=== PATIENT | female | born 1945 | race Caucasian/White ===

== ENCOUNTER 2020-11-08 17:02 | Inpatient (IN) | payer OTHER ==
[~2020-11-08] VITALS: Ht 157.5 cm; Wt 69.4 kg
[2020-11-08] MEDS ORDERED: NIFEDIPINE20 MG (17:31)
[2020-11-08] MEDS ORDERED: IRBESARTAN-HCT1 EACH (17:31)
[2020-11-08] MEDS ORDERED: ZIAC 10/6.25 MG1 TAB (17:31)
[2020-11-09] MEDS ORDERED: SERTRALINE HCL25 MG (14:28)
[2020-11-12] MEDS ORDERED: Procardia Xl 30MG TA PO (18:10)
[2020-11-12] MEDS ORDERED: THIAMINE HCL100 MG PO (18:10)
[2020-11-12] MEDS ORDERED: QUETIAPINE FUMA25 MG PO (18:10)
[2020-11-12] MEDS ORDERED: MEGESTROL400 MG/11 PO (18:10)
[2020-11-12] MEDS ORDERED: TOPROL XL25 M1 PO (18:10)
[2020-11-12] MEDS ORDERED: FOLIC ACID1 MG PO (18:10)
[2020-11-12] MEDS ORDERED: MULTI-VITAMIN1 EACH PO (18:10)
== END 2020-11-12 22:10 | disposition home or self-care (01) | DRG 69 ==
LOC: ER 17:02 → MEDI 23:49 → MEDJ 11-12 07:32
PROVIDERS: ADMIT Internal Medicine; ATTEND Internal Medicine
PROC: B020ZZZ Computerized Tomography (CT Scan) of Brain (ICD-10-PCS; 2020-11-08)
PROC: B345ZZZ Ultrasonography of Bilateral Common Carotid Arteries (ICD-10-PCS; 2020-11-08)
PROC: BT43ZZZ Ultrasonography of Bilateral Kidneys (ICD-10-PCS; 2020-11-08)
PROC: B24BYZZ Ultrasonography of Heart with Aorta using Other Contrast (ICD-10-PCS; 2020-11-08)
PROC: 4A12X45 Monitoring of Cardiac Electrical Activity, Ambulatory, External Approach (ICD-10-PCS; principal; 2020-11-09)
PROC: BW38Y0Z Magnetic Resonance Imaging (MRI) of Head using Other Contrast, Unenhanced and Enhanced (ICD-10-PCS; 2020-11-09)
DX: G45.8 Other transient cerebral ischemic attacks and related syndromes (principal); G93.41 Metabolic encephalopathy; E87.1 Hypo-osmolality and hyponatremia; N17.9 Acute kidney failure, unspecified; F10.231 Alcohol dependence with withdrawal delirium; E86.0 Dehydration; E87.6 Hypokalemia; I10 Essential (primary) hypertension
CPT/HCPCS: 70544

== ENCOUNTER 2023-10-08 00:04 | Inpatient (IN) | payer OTHER ==
[~2023-10-08] VITALS: Ht 167.6 cm; Wt 70.8 kg
[~2023-10-08 00:04] MED LIST: FOLIC ACID1 MG PO; IRBESARTAN-HCT1 EACH; MEGESTROL400 MG/11 PO; MULTI-VITAMIN1 EACH PO; NIFEDIPINE20 MG; Procardia Xl 30MG TA PO; QUETIAPINE FUMA25 MG PO; SERTRALINE HCL25 MG; THIAMINE HCL100 MG PO; TOPROL XL25 M1 PO; ZIAC 10/6.25 MG1 TAB
[2023-10-08] MEDS ORDERED: PLAVIX75 MG PO (01:18)
[2023-10-08 01:44] LABS: HEMATOCRIT 35.9 % (36.0-45.00); HEMOGLOBIN 12.1 g/dL (12.0-15.00); MEAN CELL VOLUME 88.3 fL (80.00-100.00); MEAN CORPUSCULAR HEMOGLOBIN 29.9 pg (27.00-32.0); MEAN CORPUSCULAR HGB CONC 33.9 g/dl (32.0-36.0); PLATELET COUNT 163 K/uL (150-450); RED BLOOD COUNT 4.06 M/uL (4.00-6.00); RED CELL DISTRIBUTION WIDTH 14.3 % (11.5-14.5)
[2023-10-08 01:57] LABS: INR 1.03; PARTIAL THROMBOPLASTIN TIME 25.8 SECONDS (22.0-34.0); PROTHROMBIN TIME 10.8 SECONDS (9.0-11.5)
[2023-10-08 02:01] LABS: BILIRUBIN TOTAL 0.53 mg/dL (0.3-1.2); BILIRUBIN,CONJUGATED 0.21 mg/dL (0.0-0.2); BILIRUBIN,UNCONJUGATED 0.32 mg/dL (0.0-0.6); CALCIUM 9.2 mg/dL (8.5-10.1); CREATININE SERUM 1.99 mg/dL (0.55-1.02); GFR 24.36; GLOBULINA 3.7 G/DL (2.4-3.5); POTASSIUM 3.56 mEq/L (3.5-5.1); TOTAL PROTEIN 7.7 gm/dL (6.4-8.2)
[2023-10-08 11:08] LABS: URINE APPEARANCE Clear; URINE BILIRRUBIN Negative (NEGATIVE); URINE BLOOD Negative; URINE COLOR Yellow; URINE GLUCOSE Negative (NEGATIVE); URINE LEUKOCYTE Trace; URINE NITRATE Negative; URINE PROTEIN Negative (NEGATIVE); URINE UROBILINOGEN 0.2 E.U./dl
[2023-10-08 11:11] LABS: URINE EPITHELIAL CELLS 13.5 uL (0.0-38.8); URINE RBC 2.5 uL (0.0-20.8); URINE WBC 18.2 uL (0.0-23.2)
[2023-10-09 05:18] LABS: HEMATOCRIT 29.2 % (36.0-45.00); MEAN CELL VOLUME 87.2 fL (80.00-100.00); MEAN CORPUSCULAR HGB CONC 34.6 g/dl (32.0-36.0); RED BLOOD COUNT 3.35 M/uL (4.00-6.00); RED CELL DISTRIBUTION WIDTH 14.7 % (11.5-14.5)
[2023-10-09 05:28] LABS: PLATELET COUNT 121 K/uL (150-450)
[2023-10-09 05:29] LABS: HEMOGLOBIN 10.1 g/dL (12.0-15.00); MEAN CORPUSCULAR HEMOGLOBIN 30.1 pg (27.00-32.0)
[2023-10-09 05:36] LABS: ERYTHROCYTE SEDIMENTATION RATE 29 mm/hr; INR 1.23; PARTIAL THROMBOPLASTIN TIME 31.9 SECONDS (22.0-34.0); PROTHROMBIN TIME 12.7 SECONDS (9.0-11.5)
[2023-10-09 06:01] LABS: CHOL HDL RATIO 1.7 (0-5.0); TSH 0.803 uIU/mL (0.358-3.74)
[2023-10-09 06:05] LABS: C-REACTIVE PROTEIN 15.3 MG/DL (0.00-0.29)
[2023-10-09 07:09] LABS: PH,URINE 5.5 (5.0-8.0); URINE APPEARANCE Clear; URINE BILIRRUBIN Negative (NEGATIVE); URINE BLOOD Negative; URINE COLOR Yellow; URINE GLUCOSE Negative (NEGATIVE); URINE LEUKOCYTE Trace; URINE NITRATE Negative; URINE PROTEIN Negative (NEGATIVE); URINE UROBILINOGEN 0.2 E.U./dl
[2023-10-09 07:13] LABS: URINE EPITHELIAL CELLS 11.2 uL (0.0-38.8); URINE RBC 3.4 uL (0.0-20.8); URINE WBC 3.2 uL (0.0-23.2)
[2023-10-09 13:29] LABS: FECAL LEUKOCYTES NEGATIVE (NEGATIVE)
[2023-10-09 13:32] LABS: ob POSITIVE (NEGATIVE)
[2023-10-10 07:27] LABS: URINE PROT QUANT 24 HR 478.5 MG/24HR (42-225)
[2023-10-11 05:59] LABS: HEMATOCRIT 30.9 % (36.0-45.00); HEMOGLOBIN 10.7 g/dL (12.0-15.00); MEAN CELL VOLUME 86.9 fL (80.00-100.00); MEAN CORPUSCULAR HEMOGLOBIN 30.1 pg (27.00-32.0); MEAN CORPUSCULAR HGB CONC 34.6 g/dl (32.0-36.0); PLATELET COUNT 154 K/uL (150-450); RED BLOOD COUNT 3.56 M/uL (4.00-6.00); RED CELL DISTRIBUTION WIDTH 14.4 % (11.5-14.5)
[2023-10-11 07:18] LABS: ALBUMIN 3.4 gm/dL (3.4-5.0); CALCIUM 8.2 mg/dL (8.5-10.1); CREATININE SERUM 1.78 mg/dL (0.55-1.02); GFR 27.71; POTASSIUM 3.2 mEq/L (3.5-5.1)
[2023-10-11 08:06] LABS: PHOSPHOROUS 1.7 mg/dL (2.5-4.9)
[2023-10-12] MEDS ORDERED: INTESTINEX680 M1 PO ×2 (11:14→11:16)
[2023-10-12] MEDS ORDERED: METRONIDAZOLE500 MG PO (11:15)
[2023-10-12] MEDS ORDERED: CIPRO500 MG PO (11:15)
== END 2023-10-12 14:34 | disposition home or self-care (01) | DRG 392 ==
LOC: ER 00:04 → MEDJ 12:33
PROVIDERS: General Practice; Internal Medicine Nephrology; ADMIT Internal Medicine; ATTEND Internal Medicine
PROC: BW21ZZZ Computerized Tomography (CT Scan) of Abdomen and Pelvis (ICD-10-PCS; principal; 2023-10-08)
PROC: BW40ZZZ Ultrasonography of Abdomen (ICD-10-PCS; 2023-10-08)
DX: K52.89 Other specified noninfective gastroenteritis and colitis (principal); N17.8 Other acute kidney failure; N18.4 Chronic kidney disease, stage 4 (severe); K57.92 Diverticulitis of intestine, part unspecified, without perforation or abscess without bleeding; I12.9 Hypertensive chronic kidney disease with stage 1 through stage 4 chronic kidney disease, or unspecified chronic kidney disease; E86.0 Dehydration; G30.9 Alzheimer's disease, unspecified; F02.80 Dementia in other diseases classified elsewhere, unspecified severity, without behavioral disturbance, psychotic disturbance, mood disturbance, and anxiety

== ENCOUNTER 2024-04-17 08:18 | Inpatient (IN) | payer OTHER ==
[~2024-04-17] VITALS: Ht 154.9 cm; Wt 80.3 kg
[~2024-04-17 08:18] MED LIST changes: +CIPRO500 MG PO; +INTESTINEX680 M1 PO; +METRONIDAZOLE500 MG PO; +PLAVIX75 MG PO
--- NOTE | 2024-04-17 08:36 | NUR ---
PTE ALERTA Y ORIENTA X3 EN COMPANIA DE FAMILIAR QUIEN RREFIERE RANDI VISTO A PTE CON LABIO VITOO FARHAT Y SAMANTHA GARCIA. FAMILIAR REFIERE RANDI LLAMADO A KNAPP INTERNISTA MD CINTHYA LAURA E INDICARLE PASAR POR POLLY DE EMERGENCIA. AL MOMENTO DE TRIAGE PTE SE OBSERVA ORIENTADA SE REALIZAN PREGUNTAS LAS CUALES PUDO CONTESTAR. FAMILIAR REFIERE TENER YESENIA CON MD TORY MCCABE YA QUE PTE PADECE DE DEMENCIA.
[2024-04-17] MEDS ORDERED: 0.9 % SODIUM CHLORIDE 1,000 ML IV SCH ×2 (09:00→14:00)
--- NOTE | 2024-04-17 09:40 | NUR ---
RN WOLFF ORIENTA A PTE SOBRE TRATAMIENTO E INSTRUCCIONES A SEGUIR, LIZ REFIERE ENTENDER. SE COLECTA MUESTRAS, SE CANALIZA Y SE ADMINISTRA MEDICAMENTO DALILA ORDEN MEDICA
[2024-04-17 10:07] LABS: PLATELET COUNT 179 K/uL (150-450); RED BLOOD COUNT 3.34 M/uL (4.00-6.00)
[2024-04-17 10:08] LABS: HEMATOCRIT 21.2 % (36.0-45.00); MEAN CELL VOLUME 63.6 fL (80.00-100.00); MEAN CORPUSCULAR HEMOGLOBIN 19.7 pg (27.00-32.0)
[2024-04-17 10:09] LABS: HEMOGLOBIN 6.6 g/dL (12.0-15.00)
[2024-04-17 10:48] LABS: CALCIUM 8.7 mg/dL (8.5-10.1); CREATININE SERUM 2.12 mg/dL (0.55-1.02); GFR 22.65; POTASSIUM 4.19 mEq/L (3.5-5.1)
[2024-04-17] MEDS ORDERED: FAMOTIDINE/PF 20 MG in 0.9 % SODIUM CHLORIDE 100 ML IV SCH (13:58)
[2024-04-17] MEDS ORDERED: ONDANSETRON HCL 4 MG in 0.9 % SODIUM CHLORIDE 50 ML IV PRN (14:00)
[2024-04-17] MEDS ORDERED: NIFEDIPINE 30 MG TAB.SA.OSM PO SCH (14:03)
[2024-04-17] MEDS ORDERED: METOPROLOL TARTRATE 25 MG TABLET PO SCH (14:03)
[2024-04-17] MEDS ORDERED: QUETIAPINE FUMARATE 25 MG TABLET PO SCH (14:04)
[2024-04-17 16:56] LABS: INR 1.05; PARTIAL THROMBOPLASTIN TIME 25.9 SECONDS (22.0-34.0)
[2024-04-17 17:00] LABS: URINE APPEARANCE Clear; URINE BILIRRUBIN Negative (NEGATIVE); URINE BLOOD Negative; URINE COLOR Yellow; URINE GLUCOSE Negative (NEGATIVE); URINE LEUKOCYTE Negative; URINE NITRATE Negative; URINE PROTEIN Negative (NEGATIVE); URINE UROBILINOGEN 0.2 E.U./dl
[2024-04-17 17:01] LABS: URINE BACTERIA 13.8 uL (0.0-1933); URINE WBC 8.1 uL (0.0-23.2)
[2024-04-17 17:05] LABS: ALBUMIN 3.4 gm/dL (3.4-5.0); CALCIUM 8.7 mg/dL (8.5-10.1); CREATININE SERUM 1.88 mg/dL (0.55-1.02); GFR 26.02; POTASSIUM 3.89 mEq/L (3.5-5.1)
[2024-04-17] MEDS ORDERED: PANTOPRAZOLE SODIUM 40 MG/VIAL VIAL IV SCH (17:19)
[2024-04-17 17:30] LABS: URINE EPITHELIAL CELLS 1.2 uL (0.0-38.8); URINE RBC 0.3 uL (0.0-20.8)
[2024-04-17] MEDS ORDERED: hydrALAZINE HCL 20 MG VIAL IV ONE (20:45)
[2024-04-18 08:47] LABS: PHOSPHOROUS 3.2 mg/dL (2.5-4.9)
[2024-04-18 08:48] LABS: MAGNESIUM 1.4 mg/dL (1.8-2.4)
[2024-04-18] MEDS ORDERED: IRON FUM,PS/FOLIC/BCOMP,C NO.9 1 CAP CAPSULE PO SCH (09:00)
[2024-04-18] MEDS ORDERED: LORazepam 2 MG/ML VIAL IV STA (12:32)
[2024-04-18] MEDS ORDERED: DIPHENHYDRAMINE HCL 50 MG/ML VIAL 1ML IV NR (13:30)
[2024-04-18] MEDS ORDERED: PANTOPRAZOLE SODIUM 80 MG in 0.9 % SODIUM CHLORIDE 100 ML IV SCH (16:45)
[2024-04-18] MEDS ORDERED: hydrALAZINE HCL 20 MG VIAL IV PRN (20:15)
[2024-04-18] MEDS ORDERED: FUROsemide 20 MG/2 ML VIAL IV SCH (20:30)
[2024-04-19] MEDS ORDERED: SOD FERRIC GLUC COMPLX/SUCROSE 62.5 MG/5 ML AMPUL IV SCH (09:00)
[2024-04-19] MEDS ORDERED: PANTOPRAZOLE SODIUM 40 MG/VIAL VIAL IV SCH (09:00)
[2024-04-19] MEDS ORDERED: Cyanocobalamin/Mecobalamin 1 TAB.SL SL SCH (09:00)
[2024-04-19] MEDS ORDERED: PANTOPRAZOLE SODIUM 80 MG in 0.9 % SODIUM CHLORIDE 100 ML IV SCH (09:00)
[2024-04-19] MEDS ORDERED: VITAMIN B COMPLEX 1 EACH PO SCH (09:00)
[2024-04-19 11:04] LABS: HEMATOCRIT 35.5 % (36.0-45.00); MEAN CORPUSCULAR HGB CONC 32.2 g/dl (32.0-36.0); PLATELET COUNT 183 K/uL (150-450)
[2024-04-19 11:09] LABS: HEMOGLOBIN 11.4 g/dL (12.0-15.00); MEAN CELL VOLUME 69.6 fL (80.00-100.00); MEAN CORPUSCULAR HEMOGLOBIN 22.3 pg (27.00-32.0); RED CELL DISTRIBUTION WIDTH 25.7 % (11.5-14.5)
[2024-04-19 11:25] LABS: ALBUMIN 3.7 gm/dL (3.4-5.0); BILIRUBIN TOTAL 1.56 mg/dL (0.3-1.2); CALCIUM 9.1 mg/dL (8.5-10.1); CREATININE SERUM 1.76 mg/dL (0.55-1.02); GFR 28.07; GLOBULINA 3.4 G/DL (2.4-3.5); POTASSIUM 3.79 mEq/L (3.5-5.1); TOTAL PROTEIN 7.1 gm/dL (6.4-8.2)
[2024-04-19] MEDS ORDERED: SODIUM CHLORIDE 0.45 % 1,000 ML IV SCH (18:00)
[2024-04-20] MEDS ORDERED: NIFEDIPINE 30 MG TAB.SA.OSM PO SCH (09:00)
[2024-04-20] MEDS ORDERED: EMOLLIENTS 6 OZ BOTTLE TOP SCH (09:00)
[2024-04-20 15:10] LABS: FOLIC ACID > 20.00 ng/ml (4.78-20)
[2024-04-21] MEDS ORDERED: PANTOPRAZOLE SODIUM 40 MG/VIAL VIAL IV SCH (06:00)
[2024-04-21 08:04] LABS: HEMATOCRIT 34.1 % (36.0-45.00); HEMOGLOBIN 11.2 g/dL (12.0-15.00); MEAN CORPUSCULAR HEMOGLOBIN 22.7 pg (27.00-32.0); MEAN CORPUSCULAR HGB CONC 32.8 g/dl (32.0-36.0); PLATELET COUNT 192 K/uL (150-450); RED BLOOD COUNT 4.93 M/uL (4.00-6.00)
[2024-04-21 08:06] LABS: MEAN CELL VOLUME 69.2 fL (80.00-100.00); RED CELL DISTRIBUTION WIDTH 26.1 % (11.5-14.5)
[2024-04-21 08:47] LABS: ALBUMIN 3.3 gm/dL (3.4-5.0); BILIRUBIN TOTAL 0.62 mg/dL (0.3-1.2); CALCIUM 8.7 mg/dL (8.5-10.1); CREATININE SERUM 2.01 mg/dL (0.55-1.02); GFR 24.08; GLOBULINA 2.9 G/DL (2.4-3.5); MAGNESIUM 1.7 mg/dL (1.8-2.4); PHOSPHOROUS 4.4 mg/dL (2.5-4.9); POTASSIUM 3.76 mEq/L (3.5-5.1); TOTAL PROTEIN 6.2 gm/dL (6.4-8.2)
[2024-04-22] MEDS ORDERED: MIDAZOLAM HCL 2 MG/2 ML VIAL IV STA (12:08)
[2024-04-23] MEDS ORDERED: PEG3350/SOD SULF,BICARB,CL/KCL 4,000 ML GALLON PO NR (14:00)
[2024-04-24] MEDS ORDERED: MIDAZOLAM HCL 2 MG/2 ML VIAL IV STA (12:12)
[2024-04-24] MEDS ORDERED: FentaNYL CITRATE/PF 50MCG/ML 2ML VIAL IJ STA (12:12)
[2024-04-24] MEDS ORDERED: Procardia Xl 30MG TA PO (15:50)
[2024-04-24] MEDS ORDERED: LOPRESSOR25 MG PO (15:50)
[2024-04-24] MEDS ORDERED: Neurin-Sl Tablet Sl SL (15:50)
[2024-04-24] MEDS ORDERED: PROTONIX40 MG PO (15:50)
[2024-04-24] MEDS ORDERED: INTEGRA PLUS C1 EACH PO (15:50)
[2024-04-24] MEDS ORDERED: B Complex PO (15:50)
[2024-04-24] MEDS ORDERED: QUETIAPINE FUMA25 MG PO (15:50)
== END 2024-04-24 18:06 | disposition home or self-care (01) | DRG 811 ==
LOC: ER 08:19 → SURH 15:13 → SEC-K 15:13 → SURH 22:59
PROVIDERS: Emergency Medicine; General Practice; Internal Medicine; Internal Medicine Geriatric Medicine; ADMIT Internal Medicine; ATTEND Internal Medicine
PROC: BW28ZZZ Computerized Tomography (CT Scan) of Head (ICD-10-PCS; principal; 2024-04-17)
PROC: BW21ZZZ Computerized Tomography (CT Scan) of Abdomen and Pelvis (ICD-10-PCS; 2024-04-17)
PROC: B030ZZZ Magnetic Resonance Imaging (MRI) of Brain (ICD-10-PCS; 2024-04-17)
PROC: B246ZZZ Ultrasonography of Right and Left Heart (ICD-10-PCS; 2024-04-17)
PROC: B345ZZZ Ultrasonography of Bilateral Common Carotid Arteries (ICD-10-PCS; 2024-04-17)
PROC: 30233N1 Transfusion of Nonautologous Red Blood Cells into Peripheral Vein, Percutaneous Approach (ICD-10-PCS; 2024-04-17)
PROC: 0DJ08ZZ Inspection of Upper Intestinal Tract, Via Natural or Artificial Opening Endoscopic (ICD-10-PCS; 2024-04-22)
PROC: 0DJD8ZZ Inspection of Lower Intestinal Tract, Via Natural or Artificial Opening Endoscopic (ICD-10-PCS; 2024-04-24)
DX: D64.89 Other specified anemias (principal); I63.50 Cerebral infarction due to unspecified occlusion or stenosis of unspecified cerebral artery; N17.8 Other acute kidney failure; N18.4 Chronic kidney disease, stage 4 (severe); G45.9 Transient cerebral ischemic attack, unspecified; K92.1 Melena; I12.9 Hypertensive chronic kidney disease with stage 1 through stage 4 chronic kidney disease, or unspecified chronic kidney disease; E86.0 Dehydration; F03.90 Unspecified dementia, unspecified severity, without behavioral disturbance, psychotic disturbance, mood disturbance, and anxiety; F02.80 Dementia in other diseases classified elsewhere, unspecified severity, without behavioral disturbance, psychotic disturbance, mood disturbance, and anxiety; K57.90 Diverticulosis of intestine, part unspecified, without perforation or abscess without bleeding; K44.9 Diaphragmatic hernia without obstruction or gangrene; E78.49 Other hyperlipidemia
CPT/HCPCS: 70544